=== PATIENT | female | born 2000 | race Caucasian/White ===

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

== ENCOUNTER → 2023-06-21 13:08 | Outpatient (CLI) | payer OTHER, SELFPAY ==
[2023-06-21 13:50] LABS: Influenza A - CEPHEID Flu A NEGATIVE (NEGATIVE); Influenza B - CEPHEID Flu B NEGATIVE (NEGATIVE); Respiratory Syncytial Virus Negative (Negative)
[2023-06-21 13:58] LABS: COVID-19 CEPHEID 4-PLEX PCR Negative (Negative)
== END ==
PROVIDERS: Family Provider Family Medicine; PCP Family Medicine; Visit Provider Physician Assistant
DX: J02.9 Acute pharyngitis, unspecified (principal)
CPT/HCPCS: 0241U

== ENCOUNTER 2024-09-24 15:55 | Emergency (ER) | payer OTHER, SELFPAY ==
[2024-09-24 15:58] VITALS: BP 137/92; PULSE 70; RESP 18; TEMP 37; O2SAT 95; BMI 21.4
[2024-09-24 16:58] LABS: Appearance Urine UA SL CLOUDY; Bilirubin Urine UA NEGATIVE (NEGATIVE); Color Urine UA YELLOW; Glucose Urine UA NEGATIVE (Negative); Ketones Urine UA 3+ (NEGATIVE); Leukocyte Esterase Urine UA NEGATIVE (NEGATIVE); Nitrite Urine UA NEGATIVE (Negative); Occult Blood Urine UA NEGATIVE (Negative); Protein Urine UA NEGATIVE (Negative); Urobilinogen Urine UA 0.2 E.U./dL (0.2)
[2024-09-24 17:05] LABS: Amorphous Sediment Urine 2+; Bacteria Urine Occasional (0-1); Culture Indicated Urine Cult Not Indicated; Mucus Urine 2+ (Negative); RBC Urine 0-1/HPF (0-5/HPF); Squamous Epithelial Cell Urine 1-5 /HPF (0-5/HPF); Urine Volume 10mL (spun); WBC Urine 0-1/HPF (0-5/HPF)
--- NOTE | 2024-09-24 17:40 | ED_ITS ---
HPI - Nausea/Vomiting/Diarrhea General Chief complaint: Nausea/Vomiting/Diarrhea Stated complaint: out drinking last night concerned of roofies Time Seen by Provider: 09/24/24 17:40 Source: patient, family, RN notes reviewed and old records reviewed Mode of arrival: Ambulatory Limitations: no limitations History of Present Illness HPI Narrative: 24-year-old female currently on Adderall and minocycline presents with complaint of drinking alcohol last night. States she had multiple drinks states she got quite intoxicated intoxicated. States that it was more than she would expected for her usual ingestion. States that she does not think she drank more than normal. She does note she recently started Adderall in his on minocycline. She was concern for drug exposure from someone else. She does not have any concerns for sexual assault. Patient states that she did not have any falls or injuries. States that she you her legs felt numb last night she did have an episode of urinary incontinence and did throw up once in her sleep. She states today she had some persistent vomiting but has been able to keep fluids down for the past hour. She denies fevers or chills. Denies any headache. Denies any chest pain or shortness of breath. Denies any back pain. Denies any numbness tingling or weakness at this time. States she was walking normally. No additional incontinence. No other GI or urinary symptoms besides nausea and vomiting from last night into today. Patient states no known drug allergies. Denies any major surgeries. States she makes tobacco. States she has about 5 drinks when she goes out 1 or 2 times a month. Denies any recreational drugs. She is accompanied by her mother. Related Data Home Medications Medication Instructions Recorded Confirmed albuterol sulfate 90 mcg/actuation ##0 08/10/17 03/15/24 aerosol inhaler (Ventolin HFA) norethindrone acetate 1.5 1 tab PO DAILY 02/03/24 03/15/24 mg-ethinyl estradiol 30 mcg tablet (Savana) Previous Rx's Medication Instructions Recorded amoxicillin 875 mg tablet 875 mg PO BID #20 tabs 02/03/24 benzonatate 100 mg capsule 100 mg PO BID-TID PRN cough #20 02/03/24 caps fluticasone propionate 50 1 spray intranasal Q12H #16 grams 02/03/24 mcg/actuation nasal spray,suspension (Flonase Allergy Relief) Allergies Allergy/AdvReac Type Severity Reaction Status Date / Time No Known Drug Allergies Allergy Verified 03/15/24 16:20 Review of Systems Review of Systems ROS Unobtainable: All systems reviewed & are unremarkable except as noted in HPI and below Patient History Medical History (Updated 09/24/24 @ 17:56 by Kennedi Martinez DO) Healthy child Surgical History No pertinent past surgical history Social History Smoking Status: Current every day smoker Smoking Status: Current every day smoker tobacco type: vaping alcohol intake frequency: a few times a month Substance Use Type: does not use Exam Narrative Exam Narrative: GENERAL: Alert and oriented x three, well-appearing female in mild distress. HEENT: Head normocephalic, atraumatic, EOMI, pupils reactive, face symmetric, moist mucous membranes NECK: Supple, full range of motion CARDIOVASCULAR: Regular rate and rhythm without murmurs, rubs or gallops. RESPIRATORY: Breath sounds equal bilaterally, no wheezes rales or rhonchi. ABDOMEN: Soft, nontender. Normoactive bowel sounds all 4 quadrants. No guarding or rebound, rigidity, no mass, patient has water bottle in the room. States she has been fluids tolerating without issue currently. : No CVA tenderness EXTREMITIES: Normal range of motion, no clubbing or edema. Neurovascularly intact NEUROLOGICAL: Cranial nerves II through XII grossly intact. Moving all extremities SKIN: Warm, dry, no petechiae, no rashes or lesions. Initial Vital Signs Initial Vital Signs: Vital Signs Temperature 98.6 F 09/24/24 15:58 Pulse Rate 70 09/24/24 15:58 Respiratory Rate 18 09/24/24 15:58 Blood Pressure 137/92 H 09/24/24 15:58 Pulse Oximetry 95 09/24/24 15:58 Oxygen Delivery Method Room Air 09/24/24 15:58 Course Orders Ordered: Discontinued Medications Ondansetron HCl (Ondansetron 4 Mg/2 Ml Inj) 4 mg IV NOW PRN PRN Reason: Nausea And Vomiting Ondansetron HCl (Ondansetron 4 Mg Odt) 4 mg SL NOW PRN PRN Reason: Nausea And Vomiting Vital Signs Vital signs: Vital Signs - 8 hr 09/24/24 15:58 Temperature 98.6 F Pulse Rate 70 Respiratory Rate 18 Blood Pressure 137/92 H Pulse Oximetry 95 Oxygen Delivery Method Room Air MDM - Nausea/Vomiting/Diarrhea Lab Data Labs: Lab Results 09/24/24 09/24/24 Range/Units 16:05 16:05 Urine Color Yellow Urine Appearance Sl cloudy Urine pH 7.0 Normal (4.5-8.0) Ur Specific [place] 1.020 (1.000-1.035) Urine Protein Negative (Negative) Urine Glucose (UA) Negative (Negative) g/dL Urine Ketones 3+ H (NEGATIVE) Urine Occult Blood Negative (Negative) Urine Nitrate Negative (Negative) Urine Bilirubin Negative (NEGATIVE) Urine Urobilinogen 0.2 (0.2) E.U./dL Ur Leukocyte Esterase Negative (NEGATIVE) Urine RBC 0-1/hpf (0-5/HPF) Urine WBC 0-1/hpf (0-5/HPF) Ur Squamous Epith Cells 1-5 /hpf (0-5/HPF) Amorphous Sediment 2+ Urine Bacteria Occasional (0-1) (None) Urine Mucus 2+ H (Negative) Ur Culture Indicated? Cult not indicated Vol Urine Centrifuged 10ml (spun) U Opiates 300ng/mL cut Negative (Negative) Ur Oxycodone Screen Negative (Negative) Urine Methadone Screen Negative (Negative) Ur Barbiturates Screen Negative (Negative) U Tricyclic Antidepress Negative (Negative) Ur Phencyclidine Scrn Negative (Negative) Ur Amphetamines Screen Positive H (Negative) U Methamphetamines Scrn Negative (Negative) Ur MDMA Scrn (Ecstasy) Negative (Negative) U Benzodiazepines Scrn Negative (Negative) Urine Cocaine Screen Negative (Negative) U Marijuana (THC) Screen Negative (Negative) Urine Specific [place] Normal (Normal) Ur Creatinine Normal (Normal) Point of Care Testing Test Results Negative Urine Dip Bedside Urine Glucose Negative Bedside Urine Bilirubin - Negative Bedside Urine Ketone ++ 40 Urine Specific [place] 1.020 Bedside Urine Occult Blood - Negative Bedside Urine pH 6.0 Bedside Urine Protein - Negative Bedside Urine Urobilinogen - Negative Bedside Urine Nitrite - Negative Bedside Urine Leukocytes - Negative Esterase MDM Narrative Medical decision making narrative: 24-year-old female with a concern for possible drug exposure while drinking alcohol. Discussed with the patient rapid drug screen does not evaluate for some of the more common exposures such as GHB. They would like proceed with drug testing. Does note that she is on Adderall which has a new medication as well as minocycline she has not drink alcohol while taking these medications before. UA shows 3+ ketones. Negative nitrates negative leukocyte esterase 1 red cell 1 white cell 1-5 squamous, occasional bacteria. Point of care is negative. UDS was sent positive for amphetamines consistent with patient's history of Adderall. Reviewed findings with the patient. Discharge Plan Departure Patient Disposition: Home Clinical Impression: Nausea & vomiting Activity Restrictions/Additional Instructions: Please follow up as needed. Your urine today did not show any signs of infection. Your UDS was positive for amphetamines this is consistent with your current prescription of Adderall. I hope you continue to feel improved. Continue to slowly hydrate today and tomorrow. Please return if you have any other new or concerning changes. Prescriptions: No Action albuterol sulfate [Ventolin HFA] 90 MCG/PUFF HFA aerosol inhaler Qty: 0 norethindrone ac-eth estradiol [Savana] 1.5-30 mg-mcg tablet 1 tab PO DAILY amoxicillin 875 mg tablet 875 mg PO BID Qty: 20 0RF fluticasone propionate [Flonase Allergy Relief] 50 mcg/actuation spray,suspension 1 spray intranasal Q12H Qty: 16 0RF Rx Instructions: administer into each nostril benzonatate 100 mg capsule 100 mg PO BID-TID PRN (Reason: cough) Qty: 20 0RF Referrals: Latasha Camp MD [Primary Care Provider] - Stand Alone Forms: Patient Portal/API/Survey
[2024-09-24 18:00] LABS: UR Morphine/Opiate cutoff 300 Negative (Negative); Ur Creatinine Normal (Normal); Ur Specific Gravity Normal (Normal); Urine Amphetamines Positive (Negative); Urine Barbiturates Negative (Negative); Urine Benzodiazepines Negative (Negative); Urine Cocaine Negative (Negative); Urine MDMA Negative (Negative); Urine Methadone Negative (Negative); Urine Methamphetamines Negative (Negative); Urine Oxycodone Negative (Negative); Urine Phencyclidine Negative (Negative); Urine Tetrahydrocannabinol Negative (Negative); Urine Tricyclic Antidepressant Negative (Negative); Urine pH Normal (Normal)
[2024-09-24 18:11] VITALS: BP 128/79; PULSE 84; RESP 16; O2SAT 97
== END 2024-09-24 18:13 | disposition home or self-care (01) ==
PROVIDERS: Emergency Provider Emergency Medicine; Family Provider Family Medicine; PCP Family Medicine
DX: R11.2 Nausea with vomiting, unspecified (principal); Z77.29 Contact with and (suspected) exposure to other hazardous substances
CPT/HCPCS: 80305; 81001; 81003; 81025; 99282